=== PATIENT | male | born 1970 ===

== ENCOUNTER 2017-05-07 18:47 | Emergency (ER) | payer OTHER ==
[2017-05-07 18:54] VITALS: BP 115/83; PULSE 85; RESP 18; TEMP 98.9; O2SAT 99
[2017-05-07] MEDS ORDERED: Lidocaine 1% w Epi 1:100,000 Inj IJ ONE (19:02)
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
[2017-05-07] MEDS ORDERED: Lidocaine 1% w Epi 1:100,000 Inj ONE (19:09)
== END 2017-05-07 20:05 | disposition home or self-care (01) ==
LOC: H.ER 18:47
DX: S01.412A Laceration without foreign body of left cheek and temporomandibular area, initial encounter (principal); W26.8XXA Contact with other sharp object(s), not elsewhere classified, initial encounter; Y92.89 Other specified places as the place of occurrence of the external cause

== ENCOUNTER 2017-05-17 11:00 | Emergency (ER) | payer OTHER ==
[2017-05-17 11:20] VITALS: BP 114/83; PULSE 76; RESP 20; TEMP 98.3; O2SAT 98
[2017-05-17 11:21] VITALS: BMI 27.4
--- NOTE | 2017-05-17 11:53 | ED PDOC ---
HPI: Wound Care - HPI Time Seen by Provider: 05/17/17 11:29 Chief Complaint (Nursing): Suture/Staple Removal Chief Complaint (Provider): Suture removal History Per: Patient Additional Complaint(s): Patient presents to ED for future removal. Pt has [address] to laceration to left cheek, repaired 4 days ago Past Medical History Reviewed: Nursing Documentation, Vital Signs Vital Signs: Last Vital Signs Temp 98.3 F 05/17/17 11:20 Pulse 76 05/17/17 11:20 Resp 20 05/17/17 11:20 BP 114/83 05/17/17 11:20 Pulse Ox 98 05/17/17 11:20 - Medical History PMH: No Chronic Diseases - Surgical History Surgical History: No Surg Hx - Family History Family History: States: Unknown Family Hx - Living Arrangements Living Arrangements: With Family - Social History Current smoker - smoking cessation education provided: No Alcohol: None Drugs: Denies - Immunization History Hx Tetanus Toxoid Vaccination: (UTD) Hx Influenza Vaccination: No Hx Pneumococcal Vaccination: No - Home Medications Home Medications: Ambulatory Orders Medication Instructions Recorded Cephalexin [cephalexin] 500 mg PO BID #20 cap 05/07/17 - Allergies Allergies/Adverse Reactions: Allergies Allergy/AdvReac Type Severity Reaction Status Date / Time No Known Allergies Allergy Verified 12/30/15 20:43 Review of Systems ROS Statement: Except As Marked, All Systems Reviewed And Found Negative Skin: Positive for: Other (wound care) Physical Exam - Reviewed Nursing Documentation Reviewed: Yes Vital Signs Reviewed: Yes - Physical Exam Appears: Positive for: Well, Non-toxic, No Acute Distress Head Exam: Positive for: ATRAUMATIC, NORMAL INSPECTION, NORMOCEPHALIC Skin: Positive for: Normal Color, Warm, DRY Eye Exam: Positive for: EOMI, Normal appearance, PERRL ENT: Positive for: Normal ENT Inspection Neck: Positive for: Normal, Painless ROM Cardiovascular/Chest: Positive for: Regular Rate, Rhythm Respiratory: Positive for: CNT, Normal Breath Sounds Gastrointestinal/Abdominal: Positive for: Normal Exam, Bowel Sounds, Soft Neurologic/Psych: Positive for: Alert, Oriented Comments: 4 sutures in palce to laceration to left cheek, no surrounding edema or erythema to site. - ECG O2 Sat by Pulse Oximetry: 98 Medical Decision Making Medical Decision Making: sutures removed by creative services writer without difficulty. Disposition - Clinical Impression Clinical Impression: Removal of suture - Patient ED Disposition Is Patient to be Admitted: No - Disposition Disposition: Routine/Home Disposition Time: 11:45 Condition: STABLE Instructions: Stitches Removal (ED) Forms: [facility] (Swedish) - POA Present On Arrival: None
== END 2017-05-17 12:01 | disposition home or self-care (01) ==
LOC: H.ER 11:00
DX: Z48.02 Encounter for removal of sutures (principal)